=== PATIENT | female | born 1955 | race Caucasian/White ===

== ENCOUNTER 2020-12-23 10:07 | Outpatient (REF) | payer MEDICARE, MEDICAID, SELFPAY ==
--- NOTE | ~2020-12-23 | US_ITS ---
EXAMINATION: US PELVIS CLINICAL INFORMATION: Pelvic pain. Abnormal bleeding. COMPARISON: None TECHNIQUE: Ultrasound of the pelvis is performed using both transabdominal and transvaginal transducers along with Doppler. Transvaginal imaging is performed due to inadequate visualization transabdominally. Transvaginal exam is limited due to patient discomfort. FINDINGS: The uterus is retroverted and measures 9.4 x 5.5 x 6 cm in dimension. No focal uterine lesion is seen. The endometrium appears abnormally thickened for a postmenopausal patient measuring 1.5 cm and heterogeneous. The right ovary is normal-appearing and measures 2 x 1.1 x 2.9 cm. The left ovary is not seen. There is a small amount of fluid in the left pelvis. US/US pelvic and transvaginal IMPRESSION: Limited exam. Abnormally thickened heterogeneous endometrium measuring 1.5 cm. Tissue sampling recommended. The left ovary is not seen. Small amount of fluid in the left pelvis.
== END 2020-12-23 10:08 | disposition home or self-care (01) ==
LOC: HO.HMGCX 10:07
PROVIDERS: PCP Student in an Organized Health Care Education/Training Program; Visit Provider Advanced Practice Midwife
DX: R10.2 Pelvic and perineal pain (principal); N95.0 Postmenopausal bleeding
CPT/HCPCS: 76830; 76856

== ENCOUNTER 2021-05-14 12:49 | Outpatient (REF) | payer MEDICARE, MEDICAID, SELFPAY ==
[2021-05-20 09:57] LABS: HPV 16 RNA DETECTED (NOT DETECTED); HPV mRNA E6/E7 rflx Detected (Not Detected)
== END 2021-05-14 12:50 | disposition home or self-care (01) ==
LOC: HO.LAB 12:49
PROVIDERS: PCP Student in an Organized Health Care Education/Training Program; Visit Provider Obstetrics & Gynecology
DX: Z01.411 Encounter for gynecological examination (general) (routine) with abnormal findings (principal); Z11.51 Encounter for screening for human papillomavirus (HPV); N95.0 Postmenopausal bleeding
CPT/HCPCS: 87624; 87625; 88142; 99202

== ENCOUNTER → 2021-05-20 09:51 | Outpatient (BNVA) | payer MEDICARE, MEDICAID, SELFPAY | PROVIDERS: PCP Student in an Organized Health Care Education/Training Program; Visit Provider Obstetrics & Gynecology | DX: Z01.818 Encounter for other preprocedural examination (principal); B97.7 Papillomavirus as the cause of diseases classified elsewhere | CPT/HCPCS: 99212 ==

== ENCOUNTER 2021-06-04 10:41 | Outpatient (REF) | payer MEDICARE, MEDICAID, SELFPAY | END 2021-06-04 10:42 | disposition home or self-care (01) | LOC: HO.LAB 10:41 | PROVIDERS: PCP Student in an Organized Health Care Education/Training Program; Visit Provider Obstetrics & Gynecology | DX: A63.0 Anogenital (venereal) warts (principal); B97.7 Papillomavirus as the cause of diseases classified elsewhere | CPT/HCPCS: 57456; 88305 ==

== ENCOUNTER → 2021-06-18 14:27 | Outpatient (BNVA) | payer MEDICARE, MEDICAID, SELFPAY | PROVIDERS: Visit Provider Obstetrics & Gynecology | DX: N95.0 Postmenopausal bleeding (principal); R87.612 Low grade squamous intraepithelial lesion on cytologic smear of cervix (LGSIL) | CPT/HCPCS: Q3014 ==

== ENCOUNTER → 2021-07-03 09:28 | Outpatient (BNVA) | payer MEDICARE, MEDICAID, SELFPAY | PROVIDERS: PCP Student in an Organized Health Care Education/Training Program; Visit Provider Obstetrics & Gynecology | DX: Z01.818 Encounter for other preprocedural examination (principal); N95.0 Postmenopausal bleeding | CPT/HCPCS: 99212 ==

== ENCOUNTER 2021-07-11 07:00 | Day surgery (SDC) | payer MEDICARE, MEDICAID, SELFPAY ==
--- NOTE | 2021-07-10 09:06 | P.CONAN_ITS ---
Documented by User: Cheri Calabrese NP 07/10/21 09:07 HPI - Anesthesia Eval Consult details Narrative: 65yo F for D&C Hysteroscopy,possible myomectomy/polypectomy [facility] Active Problems Active Problems: All Active Problems (Updated 06/18/21 @ 14:32 by Kin Lui MD) LGSIL on Pap smear of cervix (Acute) HPV in female (Acute) Postmenopausal bleeding (Acute) Past Medical History Medical History Hypercholesteremia Hypertension Social History Social History Patient Tobacco Use Status: Never used Tobacco Advance Directives: No Advance Directives Information Provided: Yes Meds Allergies Allergy/AdvReac Type Severity Reaction Status Date / Time No Known Allergies Allergy Verified 07/11/21 08:11 Home Medications Medication Instructions Recorded Confirmed Last Taken Type aspirin 81 mg chewable tablet 81 mg PO DAILY 05/14/21 Unknown History hydrochlorothiazide 25 mg tablet 25 mg PO tab 05/14/21 Unknown History meloxicam 15 mg tablet 15 mg PO tab 05/14/21 Unknown History Exam Exam Date and Time: July 10, 2021 09 Assessment and Plan Assessment Anesthesia Assessment: Chart Reviewed Documented by User: Nolan Martin MD 07/11/21 08:14 [facility] Past Medical History Medical History Hypercholesteremia Hypertension Family History Family history of problems with anesthesia: No Surgical History History of Problems with Anesthesia: No Social History Social History Patient Tobacco Use Status: Never used Tobacco Advance Directives: No Advance Directives Information Provided: Yes Meds Allergies Allergy/AdvReac Type Severity Reaction Status Date / Time No Known Allergies Allergy Verified 07/11/21 08:11 Home Medications Medication Instructions Recorded Confirmed Last Taken Type aspirin 81 mg chewable tablet 81 mg PO DAILY 05/14/21 Unknown History hydrochlorothiazide 25 mg tablet 25 mg PO tab 05/14/21 Unknown History meloxicam 15 mg tablet 15 mg PO tab 05/14/21 Unknown History Exam Airway Mallampati Class: II TM Dist: >3cm Neck ROM: Full Assessment and Plan Assessment Anesthesia Assessment: Anesthesia Plan Discussed Final Anesthetic Review Family History of Problems with Anesthesia: No History of Problems with Anesthesia: No NPO: Yes ASA Class: II Final Preanesthetic Review: No Changes in Pt Med Stat, Meds/Allgs Chart Reviewed, Consent Obtained/Reviewed and Anes Risks/Benef Reviewed Patient Risk: Low Procedure Risk: Low Anesthetic Plan Anesthetic Plan: GA Disposition: Standard PACU
[2021-07-11] VITALS (11 sets, daily range): BP systolic 126–171; BP diastolic 66–82; PULSE 55–84; RESP 14–18; TEMP 36.1–36.8; O2SAT 96–100; BMI 36.1
[2021-07-11] MEDS: Lactated Ringers 1,000 ML 100 ML IVCONT (09:01)
--- NOTE | 2021-07-11 10:50 | MHC.SHP ---
Pre-Procedural Eval Section A Date of Service: 07/11/21 Section B Chief Complaint: postmenopausal bleeding Allergies: Allergies Allergy/AdvReac Type Severity Reaction Status Date / Time No Known Allergies Allergy Verified 07/11/21 08:11 Plan I have reviewed the history and physical and performed a pertinent physical examination on my patient. No changes have occurred unless specified.
--- NOTE | 2021-07-11 12:15 | P.BOP_ITS ---
Brief Operative Note Date of Service: 07/11/21 Pre-op diagnosis: Postmenopausal bleeding Post-op diagnosis: same (To endometrial polyp) Procedure: Hysteroscopy D&C, Polypectomies Surgeon: Kin Lui MD Anesthesia: MAC Was an Spooler Operator Automatic used for this Procedure?: No Estimated blood loss (mL): 0 Pathology: other (Endometrial Scrapping. 2 endometrial Polyps) Condition: stable Disposition: PACU
--- NOTE | 2021-07-11 12:16 | P.OP_ITS ---
Operative Note Operative Note Date of Service: 07/11/21 Narrative: Preop Diagnosis: Postmenopausal bleeding Operation: Diagnostic Hysteroscopy, Dilataion & Curettage and polypectomies Post Op Diagnosis: 2 Endometrial Polyps QBL: Minimal Anesthesia: MAC Surgeon: Kin Lui MD Chemical Detection Expert: None Complication: None Pathology: Endometrial Scrapings,2 Endometrial polyps Procedure: The patient was put in the dorsal lithotomy position, scrubbed, and draped in the usual manner. A sterile speculum was inserted in the patient's vagina. The anterior lip of the cervix was grasped with a single tooth tenaculum. The cervix was dilated up to 5 mm, then the scope was inserted in the patient's uterus. Inspection revealed 2 endometrial polyps. The Myosure Reach device was used; it was introduced through the operative channel and 2 polypectomies done with no complications. This was followed by sharp curettings the endometrium minimal were tissues retrieved. At the end of the procedure, all instruments were taken out of the patient uterine and vaginal cavity. The single tooth tenaculum was removed and homeostasis was assured using pressure,. The patient tolerated the procedure well and was transferred to the PACU in a stable condition.
[2021-07-11] MEDS: oxyCODONE HCl Immed Release 5 MG TABLET PO (12:38)
[2021-07-11] MEDS: fentaNYL citrate/PF 100 MCG/2 ML VIAL 50 MCG IVPUSH ×2 (12:55→13:00)
== END 2021-07-11 14:35 | disposition home or self-care (01) ==
PROVIDERS: PCP Student in an Organized Health Care Education/Training Program; Visit Provider Obstetrics & Gynecology
PROC: 0UDB8ZZ Extraction of Endometrium, Via Natural or Artificial Opening Endoscopic (ICD-10-PCS; CPT 58558; principal; 2021-07-11 11:20)
DX: N84.0 Polyp of corpus uteri (principal); E78.00 Pure hypercholesterolemia, unspecified; I10 Essential (primary) hypertension; Z79.82 Long term (current) use of aspirin; Z79.899 Other long term (current) drug therapy
CPT/HCPCS: 58558; 88305; J1100; J2250; J2405; J3010

== ENCOUNTER → 2021-07-24 12:43 | Outpatient (BNVA) | payer MEDICARE, MEDICAID, SELFPAY | PROVIDERS: PCP Student in an Organized Health Care Education/Training Program; Visit Provider Obstetrics & Gynecology | DX: Z48.816 Encounter for surgical aftercare following surgery on the genitourinary system (principal); N85.02 Endometrial intraepithelial neoplasia [EIN] | CPT/HCPCS: 99212 ==

== ENCOUNTER 2023-05-07 10:46 | Outpatient (REF) | payer MEDICARE, MEDICAID, SELFPAY ==
--- NOTE | ~2023-05-07 | MM_ITS ---
EXAMINATION: MM SCREENING DIGITAL BREAST TOMOSYNTHESIS, BILATERAL CLINICAL INFORMATION: Screening. Asymptomatic. Patient is status post breast reduction. COMPARISON: Mammography: This study is compared with prior exams dating back to 2019. TECHNIQUE: Digital breast tomosynthesis is performed in both the craniocaudal and mediolateral oblique views along with computer-aided detection (CAD). Synthesized 2D images are generated from the tomosynthesis. FINDINGS: There are scattered areas of fibroglandular density (ACR BI-RADS breast composition Category b). There are no significant masses, abnormal calcifications, or other abnormalities. There is a tissue marker present in the upper outer quadrant of the right breast from prior benign percutaneous biopsy. There are post reduction changes present. MM/MM tomosynthesis screening BI IMPRESSION: No mammographic evidence of malignancy. ASSESSMENT: BI-RADS BI-RADS 2 - Benign Findings RECOMMENDATION: Routine annual mammography screening. 1 year F/U This examination should not preclude the clinical evaluation of a suspicious palpable abnormality. This patient's information was entered into a reminder system with a target due date for their next mammogram.
== END 2023-05-07 10:47 | disposition home or self-care (01) ==
LOC: HO.MAMMO 10:46
PROVIDERS: PCP Student in an Organized Health Care Education/Training Program; Visit Provider Student in an Organized Health Care Education/Training Program
DX: Z12.31 Encounter for screening mammogram for malignant neoplasm of breast (principal)
CPT/HCPCS: 77063; 77067

== ENCOUNTER → 2023-05-07 11:15 | Outpatient (BNV) | payer MEDICARE, MEDICAID, SELFPAY | PROVIDERS: PCP Student in an Organized Health Care Education/Training Program; Visit Provider Radiology Diagnostic Radiology | DX: Z12.31 Encounter for screening mammogram for malignant neoplasm of breast (principal) | CPT/HCPCS: 77063; 77067 ==

== ENCOUNTER 2023-06-08 09:11 | Outpatient (REF) | payer MEDICARE, MEDICAID, SELFPAY ==
[2023-06-08 14:38] LABS: Estimated Average Glucose 131 mg/dL; Hemoglobin A1c % 6.2 % (<6.0)
[2023-06-08 14:42] LABS: Alanine Aminotransferase 14 U/L (0-31); Albumin Level 3.9 g/dL (3.5-5.0); Alkaline Phosphatase 73 U/L (39-117); Anion Gap 14 (12-20); Aspartate Amino Transferase 15 U/L (5-31); Bilirubin Direct 0.1 mg/dL (0.0-0.5); Bilirubin Total 0.3 mg/dL (0.0-1.0); Blood Urea Nitrogen 17 mg/dL (9-16); Calcium 10.1 mg/dL (8.4-10.2); Carbon Dioxide 27 mmol/L (22-29); Chloride 105 mmol/L (96-108); Cholesterol 235 mg/dL (<200); Estimated Glomerular Filt Rate > 60; Glucose Random 101 mg/dL (60-115); HDL Cholesterol 76 mg/dL (>40); LDL Cholesterol Calculated 147 mg/dL (<100); Potassium 3.8 mmol/L (3.3-5.1); Sodium 142 mmol/L (135-145); Total Protein 7.5 g/dL (6.5-8.0); Triglycerides 62 mg/dL (<150)
== END 2023-06-08 09:12 | disposition home or self-care (01) ==
LOC: HO.CHCLDS 09:11
PROVIDERS: Visit Provider Student in an Organized Health Care Education/Training Program
DX: Z13.89 Encounter for screening for other disorder (principal)
CPT/HCPCS: 36415; 80048; 80061; 80076; 83036

== ENCOUNTER 2023-06-08 14:14 | Outpatient (REF) | payer MEDICARE, MEDICAID, SELFPAY ==
[2023-06-16 03:29] LABS: HPV mRNA E6/E7 rflx Not Detected (Not Detected)
== END 2023-06-08 14:15 | disposition home or self-care (01) ==
LOC: HO.CHCLNP 14:14
PROVIDERS: Visit Provider Advanced Practice Midwife
DX: Z01.419 Encounter for gynecological examination (general) (routine) without abnormal findings (principal); R73.03 Prediabetes; I10 Essential (primary) hypertension
CPT/HCPCS: 36415; 80048; 80061; 80076; 83036; 87624; 88142

== ENCOUNTER 2023-08-06 08:58 | Outpatient (REF) | payer OTHER, MEDICAID, SELFPAY ==
--- NOTE | ~2023-08-06 | XR_ITS ---
EXAMINATION: XR KNEE, LEFT CLINICAL INFORMATION: Pain COMPARISON: None available. TECHNIQUE: 2 views of the left knee. FINDINGS: The proximal end of the tibial loi and interlocking screws noted. Hardware is intact. The compartments of the knee are normal. There is no effusion. Surrounding soft tissues unremarkable. XR/XR knee LT 2V IMPRESSION: Postsurgical changes in the tibia. The knee joint appears normal.
[2023-08-06 10:26] LABS: Alanine Aminotransferase 16 U/L (0-31); Albumin Level 3.8 g/dL (3.5-5.0); Alkaline Phosphatase 66 U/L (39-117); Aspartate Amino Transferase 17 U/L (5-31); Bilirubin Direct 0.2 mg/dL (0.0-0.5); Bilirubin Total 0.4 mg/dL (0.0-1.0); Cholesterol 217 mg/dL (<200); HDL Cholesterol 64 mg/dL (>40); LDL Cholesterol Calculated 137 mg/dL (<100); Triglycerides 81 mg/dL (<150)
== END 2023-08-06 08:59 | disposition home or self-care (01) ==
LOC: HO.XRAY 08:58
PROVIDERS: PCP Student in an Organized Health Care Education/Training Program; Visit Provider Student in an Organized Health Care Education/Training Program
DX: M25.562 Pain in left knee (principal); E78.00 Pure hypercholesterolemia, unspecified; G89.29 Other chronic pain
CPT/HCPCS: 36415; 73560; 80061; 80076; 84443

== ENCOUNTER 2023-09-01 07:52 | Outpatient (REF) | payer OTHER, SELFPAY ==
--- NOTE | ~2023-09-01 | XR_ITS ---
EXAMINATION: XR KNEE, LEFT CLINICAL INFORMATION: Pain in left knee. COMPARISON: July 10, 2008 left knee radiographs. TECHNIQUE: AP standing view of bilateral knees as well as sunrise view of left knee. FINDINGS: LEFT KNEE: Redemonstration of intramedullary loi with 2 screws incompletely imaged in the proximal left tibia. Imaged portion of hardware appears intact. Mild narrowing of the medial and patellofemoral compartments with tiny marginal osteophytes. AP STANDING VIEW OF RIGHT KNEE: Mild narrowing of the medial compartment with tiny medial marginal osteophytes. XR/XR knee LT 1V IMPRESSION: Mild degenerative changes in the bilateral knees.
--- NOTE | ~2023-09-01 | XR_ITS ---
EXAMINATION: XR KNEE, LEFT CLINICAL INFORMATION: Pain in left knee. COMPARISON: July 10, 2008 left knee radiographs. TECHNIQUE: AP standing view of bilateral knees as well as sunrise view of left knee. FINDINGS: LEFT KNEE: Redemonstration of intramedullary loi with 2 screws incompletely imaged in the proximal left tibia. Imaged portion of hardware appears intact. Mild narrowing of the medial and patellofemoral compartments with tiny marginal osteophytes. AP STANDING VIEW OF RIGHT KNEE: Mild narrowing of the medial compartment with tiny medial marginal osteophytes. XR/XR knee RT 2V IMPRESSION: Mild degenerative changes in the bilateral knees.
== END 2023-09-01 07:53 | disposition home or self-care (01) ==
LOC: HO.HOSX 07:52
PROVIDERS: PCP Student in an Organized Health Care Education/Training Program; Visit Provider Physician Assistant
DX: M17.12 Unilateral primary osteoarthritis, left knee (principal)
CPT/HCPCS: 73560; 99202

== ENCOUNTER 2023-09-01 07:52 | Outpatient (AMB) | payer OTHER, SELFPAY ==
--- NOTE | 2023-09-01 07:56 | A.OFFVIS_ITS ---
Intake Visit Reasons: N/P Left knee pain/swelling Intake Note: Mela is a 67 year old Cypriot speaking female who presents today as a new patient with complaints of left knee pain and swelling. Patient reports her pain has been present for about 2 years. States difficulty with walking and her knee gives out. She has a constant ache located at the anterior aspect of knee. Denies any recent injury. Hx of left knee surgery, 1999 in [place]. Finds very little to no relief with meloxicam. Patient declines spanish medical interpreter services, requested her significant other to interpret. Allergies No Known Allergies Allergy (Verified 09/01/23 08:08) Medication List - Last Reconciled 09/01/23 by Ml Gonzalez PA-C aspirin 81 mg PO DAILY hydrochlorothiazide 25 mg PO meloxicam 15 mg PO HPI HPI N/P Left knee pain/swelling: Details: 67-year-old Cypriot speaking female who presents to the office today with her for an evaluation of left knee pain for 2 years. She states she has pain, swelling, tightness and constant ache at the anterior aspect of her left knee that is aggravated with ambulation and getting up. She also reports her knee giving out with ambulation. She finds minimal relief with meloxicam. She has not had any injury in the past. [facility] Medical History (Updated 09/01/23 @ 08:45 by Ml Gonzalez PA-C) Hypercholesteremia Hypertension Surgical History (Updated 09/01/23 @ 08:14 by JOYCE Morrissey) History of partial mastectomy of both breasts History of surgery on left wrist Hx of left knee surgery Social History (Updated 09/01/23 @ 08:10 by JOYCE Morrissey) Patient Tobacco Use Status: Never used Tobacco Current occupational status: unemployed and disabled Female Reproductive History Menstrual Age of Menarche: 9 Review of Systems Const All systems reviewed & are unremarkable except as noted in HPI and below Physical Exam Const General: cooperative, healthy appearing, comfortable, no acute distress, well developed and alert Orientation/consciousness: patient oriented x3 HEENT Head: Yes normal to inspection, Yes normocephalic and Yes atraumatic Eyes General: appearance normal, both eyes and all related structures Resp Effort & Inspection: normal respiratory effort and able to speak in complete sentences Cardio Rate: regular rate Peripheral pulses: Peripheral pulses 2+ throughout GI Palpation (GI): Soft to palpation Skin Lesions: no lesions Rashes: no rashes Neuro General: patient oriented x3 Extrem Other: Left knee: Skin intact, no erythema or joint effusion. Medial retropatellar tenderness. Full ROM with crepitus. Negative Jahaira?s. No ligamentous laxity. NVI. Results Reviewed Results Reviewed: Xrays were obtained in the office today and personally reviewed by me of the left knee show mild pf oa with tibial nail intact. Assessment & Plan Assessment & Plan (1) Patellofemoral arthritis of left knee: Code(s): M17.12 - Unilateral primary osteoarthritis, left knee Category: Medical Plan We discussed options which include PT, NSAIDs and injections. The patient will defer on the injection today and proceed with PT and NSAIDs. A prescription of Celebrex was also sent to the pharmacy. If symptoms persist, she will contact me for an injection, otherwise, PRN. Orders: Orders XR knee RT 2V Today M25.569 - Pain in unspecified knee XR knee LT 1V Today M25.562 - Pain in left knee PT Evaluation and Treatment Today M17.12 - Unilateral primary osteoarthritis, left knee Medications: New celecoxib (Celebrex) 200 mg PO BID 60 caps 3RF 30 days Patient Instructions: Scribed for Ml Gonzalez PA-C, by Timothy Waldrop medical records library professor, on 09/01/2023 at 8:00 AM EST.? I, Ml Gonzalez PA-C, have personally reviewed and agree with the information entered by the scribe. Coding Level of Care Code New Pt Level 3 (91636) Diagnoses Patellofemoral arthritis of left knee M17.12
== END 2023-09-01 09:16 | disposition home or self-care (01) ==
PROVIDERS: PCP Student in an Organized Health Care Education/Training Program; Visit Provider Physician Assistant
DX: M17.12 Unilateral primary osteoarthritis, left knee (principal)
CPT/HCPCS: 99204

== ENCOUNTER 2024-08-09 12:20 | Outpatient (REF) | payer OTHER, SELFPAY ==
--- NOTE | ~2024-08-09 | MM_ITS ---
EXAMINATION: MM SCREENING DIGITAL BREAST TOMOSYNTHESIS, BILATERAL CLINICAL INFORMATION: Screening. Asymptomatic. COMPARISON: Mammography: Comparison is made with available priors TECHNIQUE: Digital breast mammography with tomosynthesis is performed in both the craniocaudal and mediolateral oblique views along with computer-aided detection (CAD). FINDINGS: There are scattered areas of fibroglandular density (ACR BI-RADS breast composition Category b). Bilateral reduction mammoplasty. Right marker clip. There are no significant masses, abnormal calcifications, or other abnormalities. MM/MM tomosynthesis screening BI IMPRESSION: No mammographic evidence of malignancy. ASSESSMENT: BI-RADS BI-RADS 2 - Benign Findings RECOMMENDATION: Routine annual mammography screening. 1 year F/U This examination should not preclude the clinical evaluation of a suspicious palpable abnormality. This patient's information was entered into a reminder system with a target due date for their next mammogram. Electronically signed by: Radha Garrido DO 08/14/2024 04:22 PM EDT
--- NOTE | ~2024-08-09 | MM_ITS ---
EXAMINATION: DXA BONE DENSITY AXIAL HISTORY: postmenopausal TECHNIQUE: Forever Dual energy absorptiometry (DEXA) of the lumbar spine, total left hip, and femoral neck was performed. COMPARISON: Comparison is made with the prior examination dated 04/06/2013. FINDINGS: The bone mineral density of the lumbar spine is 1.114, corresponding to a T-score of -0.5, and a Z-score of 0.4. This is indicative of normal bone mineral density. This represents a BMD change of 0.5% compared to the prior exam. This is not statistically significant. The bone mineral density of the left total hip is 1.090, corresponding to a T-score of 0.7, and a Z-score of 1.5. This is indicative of normal bone mineral density. This represents a BMD change of 0.4% compared to the prior exam. This is not statistically significant. The bone mineral density of the left femoral neck is 0.966, corresponding to a T-score of -0.5, and a Z-score of 0.6. This is indicative of normal bone mineral density. This represents a BMD change of -3.8% compared to the prior exam. MM/XR DEXA axial skeleton IMPRESSION: Based on bone mineral density, and according to World Health Organization (WHO) criteria, the diagnosis is consistent with normal bone mineral density. All bone density values are in grams per centimeter squared (g/cm2). Statistically, 68% of repeat scans fall within 1 SD (+/- 0.010 g/cm2 for AP spine L1-L4) and 1 SD (+/- 0.012 g/cm2 for femur total) FRAX is a trademark of the [employer] [place] for Metabolic Bone Disease, a World Health Organization (WHO) Collaborating Center. Electronically signed by: Lino Arnold MD 08/09/2024 01:33 PM EDT
--- OUTSIDE RECORDS SUMMARY | 2024-08-09 13:02 | XMS_ITS | Clinical Summary ---
Author Organization [employer] Address [address] [place] [address] Care Team Providers Care Rn Recruitment Name Role Phone Beverly Silva MD Primary Care Provider [phone] Allergies No known active allergies Medications acetaminophen (Tylenol 8 Hour) 650 MG ER tablet Take 650 mg by mouth every 8 (eight) hours if needed. 06/16/2018 Active Aspirin Low Dose 81 MG chewable tablet CHEW ONE TABLET BY MOUTH EVERY MORNING 90 tablet 3 09/03/2023 Active hydroCHLOROthia zide (HYDRODiuril) 25 MG tablet TAKE ONE TABLET EVERY MORNING 30 tablet 7 10/18/2023 Active meloxicam (Mobic) 15 MG tablet TAKE ONE TABLET EVERY DAY 30 tablet 3 10/18/2023 Active atorvastatin (Lipitor) 10 MG tablet Take 1 tablet (10 mg) by mouth Once per day. 30 tablet 11 11/08/2023 Active celecoxib (CeleBREX) 200 MG capsule Take 200 mg by mouth 2 times daily. 10/18/2023 Active Active Problems Problem Noted Date Diagnosed Date Hypertension 04/18/2018 Prediabetes 04/18/2018 Depressive disorder 06/09/2011 Anxiety state 06/09/2011 Pure hypercholesterolemia 06/09/2011 Encounters Date Type Department Care Team Description 06/08/2024 10:00 AM EDT Office Visit [facility] [address] [place] [address] Maddie Baltazar CNM Visit for pelvic exam (Primary Dx); LGSIL on Pap smear of cervix; Breast cancer screening by mammogram; Menopausal and postmenopausal disorder 06/08/2024 Travel 06/01/2024 Patient Outreach [facility] [address] [place] [address] Beverly Silva MD Pre-visit Planning ([facility] unable to reach, no voicemail.) from Last 3 Months Immunizations Immunization Administration Dates Next Due Influenza injectable quadriv alent IIV4 with preservative 11/26/2017,01/14/2017,01/01/2016,2014 Influenza, IIV3, injectable 11/26/2017,1 03/16/2016,01/01/2016,2014,12/27/2013,12/27/2012,11/25/2011 Influenza, Split (incl. dusty fied surface antigen) 12/27/2012,11/25/2011 TD (adult), 2 Lf tetanus tox oid, preservative free, adsorbed 12/14/2005 Tdap 01/01/2016 Zoster, live 09/20/2018 Family History Medical History Relation Name Comments Breast cancer Neg Hx Social History Tobacco Use Types Packs/Day Years Used Date Smoking Tobacco: Never Smokeless Tobacco: Never Tobacco Cessation:Counseling Given: Not Answered Alcohol Use Standard Drinks/Week Comments Never 0 (1 standard drink = 0.6 oz pur e alcohol) Depression Answer Date Recorded Patient Health Questionnaire-9 Score 2 08/12/2022 Housing Stability Answer Date Recorded What is your housing situation today? I have sydney ferrera 07/28/[address] you li ve. Do you have problems with any of the following? None of the above 07/28/2023 Food Insecurity Answer Date Recorded Within the past 12 months, y ou worried that your food would run out before you got money to buy more: Never True 01/03/2023 Within the past 12 months,th e food you bought just didn't last and you didn't have enough money to get more: Never True Transportation Answer Date Recorded In the past 12 months, has l ack of transportation kept you from medical appts, meetings, work or from getting things needed for daily living? No 07/28/2023 Utilities Answer Date Recorded In the past 12 months, has t he electric, gas, oil or water company threatened to shut off services in your home? No 07/28/2023 Depression Answer Date Recorded Patient Health Questionnaire-2 Score 2 08/12/2022 Comments No Sex and Gender Information Value Date Recorded Sex Assigned at Female 01/12/2022 10:18 AM EDT Legal Sex Female 10:18 AM EDT Gender Identity Female 01/12/2022 10:18 AM EDT Sexual Orientation Straight 01/12/2022 10 :18 AM EDT Last Filed Vital Signs Vital Sign Reading Time Taken Comments Blood Pressure 146/80 06/08/2024 9:41 AM EDT Pulse 82 06/08/2024 9:41 AM EDT Temperature 36.8 ??C (98.2 ??F) 06/08/2024 9:41 AM ED T Respiratory Rate 20 06/08/2024 9:41 AM EDT Oxygen Saturation 98% 06/08/2024 9:41 AM EDT Inhaled Oxygen Concentration - - Weight 85.3 kg (188 lb) 06/08/2024 9:41 AM EDT Height 152.4 cm (5') 06/08/2024 9:41 AM EDT Body Mass Index 36.72 06/08/2024 9:41 AM EDT Plan of Treatment Health Maintenance Due Date Last Done Comments CT Colonography 1955 Colonoscopy 1955 Colorectal Cancer Screening 1955 FIT DNA/Cologuard 1955 FIT 1955 FOBT 1955 Sigmoidoscopy 1955 Alcohol/Substance Use Screening 1967 Hepatitis C Screening 10/26/1973 Pneumococcal Vaccine: 50+ Years (1 of 1 - PCV) 10/26/2005 Zoster Vaccines (2 of 3) 11/15/2018 09/20/2018 Depression Screening 08/13/2023 08/12/2022, 08/13/19 23 COVID-19 Vaccine (1 - season) 2023 Influenza Vaccine (#1) 2023 8, 11/26/2017, 01/14/2017, Additional history exists Mammogram 05/07/2024 05/07/2023, 07/25/2018 Diabetes: Hemoglobin A1C 06/07/2024 06/08/2023 SDOH Screening 07/27/2024 07/28/2023 Tobacco Screening 06/08/2025 06/08/2024 DTaP/Tdap/Td Vaccines (2 - Td or Tdap) 12/31/2025 01/01/2016, 12/14/2005 Cervical Cancer Screening 06/07/2026 HPV/Cotest 06/07/2026 06/08/2023, 0 04/2021, 05/14/2021, Additional history exists Pap Smear 06/07/2026 06/08/2023, 0 04/2021, 12/19/2020 Lipid Panel 08/05/2028 08/06/2023, 05/14, 08/12/2022 RSV Patients and Patients Aged 60 years or older (1 - 1-dose 75+ series) 10/26/2030 HIB Vaccines Aged Out No longer eligi ble based on patient's age to complete this topic HPV Vaccines Aged Out No longer eligi ble based on patient's age to complete this topic Hepatitis A Vaccines Aged Out No long er eligible based on patient's age to complete this topic Hepatitis B Vaccines Aged Out No long er eligible based on patient's age to complete this topic IPV Vaccines Aged Out No longer eligi ble based on patient's age to complete this topic Meningococcal B Vaccine Aged Out No l onger eligible based on patient's age to complete this topic Meningococcal Vaccine Aged Out No antonio concepción eligible based on patient's age to complete this topic RSV under 20 months Aged Out No longe r eligible based on patient's age to complete this topic Rotavirus Vaccines Aged Out No longer eligible based on patient's age to complete this topic Procedures Procedure Name Priority Date/Time Associated Diagnosis Comments LIPID PANEL, STANDARD Routine 08/06/2023 9:11 AM EDT Pure hypercholesterolemia HPV MRNA E6/E7 REFLEX TO HPV 16, 18/45 Routine 06/08/2023 9:34 AM EDT PAP SMEAR Routine 06/08/2023 9:34 AM EDT Routine cervical smear HEMOGLOBIN A1C Routine 06/08/2023 9:12 AM EDT Prediabetes BI MAMMOGRAM SCREENING TOMOSYNTHESIS BILATERAL Routine 05/07/2023 11:10 AM EST from Last 3 Months or Most Recently Relevant to Health Maintenance Results * (ABNORMAL) Lipid Panel, Standard (08/06/2023 9:11 AM EDT) Triglycerides 81 <150 mg/dL [facility] Comment:Desirable Triglyceri de: less than 150 mg/dLBorderline High Triglyceride 150-199 mg/dLHigh Triglyceride: 200-499 mg/dLVery High Triglyceride: greater than or equal to 5OO mg/dL Cholesterol 217(H) <200 mg/dL [facility] Comment:Desirable Cholestero l: less than 200 mg/dLBorderline High Cholesterol: 200-239 mg/dLHigh Cholesterol: greater than 239 mg/dL LDL Cholesterol Calculated 137(H) <100 mg/dL [facility] Comment:Desirable LDL: less than 100 mg/dLNear Optimal/Above Optimal LDL: 110- 129 mg/dLBorderline High LDL: 130-159 mg/dLHigh LDL: 160-189 mg/dLVery High LDL: greater than or equal to 190 mg/dL HDL Cholesterol 64 >40 mg/dL [facility] Comment:Desirable HDL: great er than 40 mg/dL Note: This HDL assay may give artificially low results in patients with liver disease. Blood Venous blood specimen / Unknown 08/06/2023 9:11 AM EDT 08/06/2023 9:11 AM EDT us Beverly Silva MD LAB BLOOD ORDERABLES Final Resul t [facility] [address] [place] [phone] [phone] * HPV mRNA E6/E7 w/Reflex to HPV Genotypes 16, 18/45 (06/08/2023 9:34 AM EDT) HPV nRNA E6/E7 Not Detected Not Detected [facility] Comment:Methodology: Transcr iption-Mediated AmplificationThis assay detects E6/E7 viral messenger RNA (mRNA) from 14high-risk HPV types (16,18,31,33,35,39,45,51,52,56,58,59,66,68).Cervical sources are required for HPV testing.If a vaginal source from a patient who has had atotal hysterectomy with removal of cervix wassubmitted, please contact the testing laboratoryfor alternative testing options.For additional information, please refer [email or web address].Breather/faq/NFW940b5(This link if provided for information/educational purposes only.)THIS TEST WAS PERFORMED AT:[employer] [place] [phone] PISANO MD HPV mRNA E6/E7 TNP [facility] HPV 16 RNA [facility] HPV 18/45 RNA [facility] 06/08/2023 9:34 AM EDT 06/09/2023 2:00 PM EDT us Maddie Baltazar [facility] CYTOLOGY ORDERABLES F inal Result [facility] [address] [place] [phone] [phone] * Pap Smear (06/08/2023 9:34 AM EDT) Swab Cervix uteri structure / Unknown 06/08/2023 9:34 AM EDT 06/09/2023 2:00 PM EDT Narrative [facility] - 06/20/2023 5:50 PM EDT ----- ------- Name: Mela Alejandro ?Age/Sex: 67/F ? [facility] 1955 [id number] ?? Attend Dr: MADDIE BALTAZAR CNM ?Re06/08/23 ?Status: DEP REF ? Location: HO.CHCLNP ? Disch: ? ----- ------- SPEC : [id number] ? RECD: 06/09/23-1400 ? STATUS: ??SOUT ? REQ NUM: [id number] ? DENNY: 06/08/2368 ? SUBM DR: MADDIE BALTAZAR CNM ? ENTERED: ??06/09/23-4599 ?SP TYPE: Pap Smr ?OTHR DR: ? ORDERED: ??Pap Smear ? Interpretation ?? Satisfactory for evaluation. ?? Negative for intraepithelial lesion or malignancy. ?? Fungal organisms consistent with Christin species. ? HPV mRNA E6/E7: ?NOT DETECTED ? This assay detects E6/E7 viral messenger RNA (mRNA) from 14 high-risk HPV types (16, 18, ?? 31, 33, 35, 39, 45, 51, 52, 56, 58, 59, 66, 68) ? HPV testing performed by [facility], [place], [place]. ??See reference laboratory ?? portion of the EMR for entire report. ?Clinical Information LMP: Postmenopausal Previous PAP test: 2021, LSIL ? Material Received ?? ThinPrep-Cervical ----- ------- Signed (signature on file) Hiwot Amador Gerda 06/20/231749 ? ----- ------- ? END OF REPORT ? us Maddie MCKEON LAB CYTOLOGY ORDERABLES F inal Result [facility] [address] [place] [phone] * (ABNORMAL) Hemoglobin A1c (06/08/2023 9:12 AM EDT) Hemoglobin A1c 6.2(H) <6.0 % [facility] Comment:Hemoglobin A1C Refer ence Range Adults: 4.8 - 6.0 % Non diabetic: < 6.0 % Goal: < 7.0 %Additional Action Suggested: > 8.0 %Note: Hemoglobin A1c results are invalid for patients with abnormal amounts of HbF. Blood transfusions may impact the HbA1c concentration in the patient sample. Estimated Average Glucose 131 mg/dL [facility] Comment:eAG = Estimated ave rage glucose which is %A1C expressed asaverage glucose, using the formula of the A2M-BfxtxiuRgawihw Glucose study (ADAG), Diabetes Care, Vol.31,#8,Oct. 2007 Blood Venous blood specimen / Unknown 06/08/2023 9:12 AM EDT 06/08/2023 2:12 PM EDT us Beverly Silva MD LAB BLOOD ORDERABLES Final Resul t Performing Organization Address City/State/[facility] Co de Phone Number [facility] [address] [place] [address] [phone] * BI Mammogram Screening Tomosynthesis Bilateral (05/07/2023 11:10 AM EST) Anatomical Region Laterality Modality Breast Bilateral Mammography 05/07/2023 11:1 0 AM EST Narrative 05/26/2023 4:28 PM EDT ? [facility] [place] ? [address] ?[place] [address] ? Mammography Report ? Signed ? Patient: Javon,Mela ?MR#: [id number] ?? [id number] ? : 1955 ?Acct:[id number] ? Age/Sex: 67 / F ?ADM Date: 02/23/24 ? Loc: HO.MAMMO ? Attending : Beverly Silva MD ? Ordering Physician: Beverly Silva MD ?Results: 2Benign ?? Findings ? Date of Service: 05/07/23 ?Follow Up: 1 Year From Orig ?? inal Mammogram ? Procedure(s): MM tomosynthesis screening BI ?? Accession Number(s): [id number] ? cc: Beverly Silva MD ? EXAMINATION: ?? MM SCREENING DIGITAL BREAST TOMOSYNTHESIS, BILATERAL ? CLINICAL INFORMATION: ? Screening. Asymptomatic. ? Patient is status post breast reduction. ? COMPARISON: ?? Mammography: This study is compared with prior exams dating back to ?? 2018. ? TECHNIQUE: ?? Digital breast tomosynthesis is performed in both the craniocaudal and ?? mediolateral oblique views along with computer-aided detection (CAD). ?? Synthesized 2D images are generated from the tomosynthesis. ? FINDINGS: ?? There are scattered areas of fibroglandular density (ACR BI-RADS breast ?? composition Category b). ? There are no significant masses, abnormal calcifications, or other ?? abnormalities. ?? There is a tissue marker present in the upper outer quadrant of the ?? right breast from prior benign percutaneous biopsy. ?? There are post reduction changes present. ? MM/MM tomosynthesis screening BI ?? IMPRESSION: ?? No mammographic evidence of malignancy. ? ASSESSMENT: ? BI-RADS BI-RADS 2 - Benign Findings ? RECOMMENDATION: ?? Routine annual mammography screening. ? 1 year F/U ? This examination should not preclude the clinical evaluation of a ?? suspicious palpable abnormality. ? This patient's information was entered into a reminder system with a ?? target due date for their next mammogram. ? Dictated By: ?Reyna Cornell MD ? Signed By: ?<Electronically signed by Reyna Cornell MD in OV> ? 05/26/23 1625 ? DD/ 1110 ? TD/TT: ? Head Of Strategy: ? Procedure Note Donotuseinterpreter, Image - [facility]/26/2023 [facility] [address] [place] [address] Mammography Report Signed Patient: Mela AlejandroMR#: [id number] : 6Acct:[id number] Age/Sex: 67 / FADM Date: 05/07/23 Loc: MAMMIsaias Attending Dr: Beverly Silva MD Ordering Physician: Beverly Silva MDResults: 2Benign Findings Date of Service: 05/07/23Follow Up: 1 Year From Orig inal Mammogram Procedure(s): MM tomosynthesis screening BI Accession Number(s): [id number] cc: Beverly Silva MD EXAMINATION: MM SCREENING DIGITAL BREAST TOMOSYNTHESIS, BILATERAL CLINICAL INFORMATION: Screening. Asymptomatic. Patient is status post breast reduction. COMPARISON: Mammography: This study is compared with prior exams dating back to 2019. TECHNIQUE: Digital breast tomosynthesis is performed in both the craniocaudal and mediolateral oblique views along with computer-aided detection (CAD). Synthesized 2D images are generated from the tomosynthesis. FINDINGS: There are scattered areas of fibroglandular density (ACR BI-RADS breast composition Category b). There are no significant masses, abnormal calcifications, or other abnormalities. There is a tissue marker present in the upper outer quadrant of the right breast from prior benign percutaneous biopsy. There are post reduction changes present. MM/MM tomosynthesis screening BI IMPRESSION: No mammographic evidence of malignancy. ASSESSMENT: BI-RADS BI-RADS 2 - Benign Findings RECOMMENDATION: Routine annual mammography screening. 1 year F/U This examination should not preclude the clinical evaluation of a suspicious palpable abnormality. This patient's information was entered into a reminder system with a target due date for their next mammogram. Dictated By: Reyna Cornell MD Signed By: <Electronically signed by Reyna Cornell MD in OV> 05/26/23 1625 DD/ 1110 TD/TT: Head Of Strategy: Beverly Silva MD IMG BI PROCEDURES Edited Result - Final from Last 3 Months or Most Recently Relevant to Health Maintenance Insurance [facility] [employer] OPTIONS (O D-SNP) CHACHA MILLER [id number] Care Teams Rn Recruitment Relationship Specialty Start Date End Date Beverly Silva MD [address] [place] [address] [place] [address] PCP - General Family Medicine 06/29/18
== END 2024-08-09 12:21 | disposition home or self-care (01) ==
LOC: HO.MAMMO 12:20
PROVIDERS: Visit Provider Advanced Practice Midwife
DX: Z12.31 Encounter for screening mammogram for malignant neoplasm of breast (principal); N95.9 Unspecified menopausal and perimenopausal disorder
CPT/HCPCS: 77063; 77067; 77080

== ENCOUNTER → 2024-08-09 13:00 | Outpatient (BNV) | payer OTHER, SELFPAY | PROVIDERS: Visit Provider Radiology Diagnostic Radiology | DX: E28.39 Other primary ovarian failure (principal) | CPT/HCPCS: 77080 ==